=== PATIENT | female | born 1925 | race Caucasian/White ===

== ENCOUNTER 2016-07-31 11:47 | Emergency (ER) | payer MEDICARE, BC ==
[2016-07-31] MEDS ORDERED: Pantoprazole 40 MG Vial IVPUSH ONE (12:42)
[2016-07-31] MEDS ORDERED: Promethazine 25 MG Tab PO ONE (12:42)
[2016-07-31 13:14] LABS: CHLORIDE,CL 97 mmol/L (98-107); SODIUM,NA 141 mmol/L (136-145)
--- NOTE | 2016-07-31 14:32 | EDM.PDOC ---
ED HPI GENERAL MEDICAL PROBLEM - General Chief Complaint: Gastrointestinal Problem Stated Complaint: pt fell 3 days ago started experiencing n/v today. Time Seen by Provider: 07/31/16 12:01 Source of Information: Reports: Patient, EMS History Limitations: Reports: No limitations - History of Present Illness INITIAL COMMENTS - FREE TEXT/NARRATIVE: Patient brought in by EMS for complaint of nausea and emesis today. Able to take morning pills. Says she fell 48hr ago. Has left sided rib pain in anterior/ lateral left ribs below breast. Fell into a coffee table. Denies hitting head. No LOC. Denies any other injuries. Has Life Alert and hit button. Son contacted and he came to get her back on her feet. She has not been evaluated since fall. Able to get around home using walker. Not sure why she fell. Denies any pain other than sore rib area. Pain does not worsen much with deep breath but is sore when pressure applied. No other bowel/GI changes. No new cough or SOB. Main complaint as to why she came in is the new nausea/emesis as well as concern that she broke ribs. Has been taking an aspirin approximately every 3 hours since fall. On home O2 at 4L. 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 to left knee Generalized Pain Score (Numeric/FACES): 4 - Related Data Allergies Allergy/AdvReac Type Severity Reaction Status Date / Time Penicillins Allergy Cannot Verified 08/30/15 12:20 Remember Home Meds: Home Meds Aspirin [Halfprin] 81 mg PO DAILY 04/30/15 [History] Budesonide/Formoterol [Symbicort 160-4.5 MCG] 2 puff PO BID 04/30/15 [History] Diltiazem HCl [Diltiazem ER] 360 mg PO DAILY 04/30/15 [History] Furosemide [Lasix] 20 mg PO DAILY 04/30/15 [History] Metoprolol Tartrate 50 mg PO BID 04/30/15 [History] Multivitamin [Multivitamins] 1 cap PO DAILY 04/30/15 [History] Potassium Chloride 10 meq PO DAILY 04/30/15 [History] Simvastatin [Zocor] 40 mg PO BEDTIME 04/30/15 [History] predniSONE [Prednisone] 5 mg PO DAILY 04/30/15 [History] Albuterol/Ipratropium [DuoNeb 3.0-0.5 MG/3 ML] 3 ml NEB Q4HR 08/31/15 [History] Past Medical History HEENT History: Reports: Cataract, Glaucoma, Impaired vision Cardiovascular History: Reports: None, Arrhythmia, Bypass, CAD, High cholesterol , Hypertension, [place] Respiratory History: Reports: COPD Gastrointestinal History: Reports: None Genitourinary History: Reports: None, Urinary incontinence Musculoskeletal History: Reports: Arthritis, Osteoarthritis Neurological History: Reports: None Psychiatric History: Reports: None Endocrine/Metabolic History: Reports: None Hematologic History: Reports: Blood transfusion(s) Immunologic History: Reports: None Oncologic (Cancer) History: Reports: None Dermatologic History: Reports: Venous stasis dermatitis, Other (see below) ( Decubiti bilateral buttocks from "sitting too much and wearing Depends") - Infectious Disease History Infectious Disease History: Reports: Chicken pox, Measles, Mumps, Pertussis ( whooping cough), Shingles - Past Surgical History HEENT Surgical History: Reports: Cataract surgery, Oral surgery, Tonsillectomy Cardiovascular Surgical History: Reports: Coronary artery bypass, Varicose Respiratory Surgical History: Reports: None GI Surgical History: Reports: Appendectomy, Colonoscopy Female Surgical History: Reports: None Endocrine Surgical History: Reports: None Neurological Surgical History: Reports: None Musculoskeletal Surgical History: Reports: None Oncologic Surgical History: Reports: None Dermatological Surgical History: Reports: None - Past Imaging History Past Imaging History: Reports: Angiography (Heart catheterization in 2008), Stress testing (Low level on 10/04/08) Social & Family History - Tobacco Use Smoking Status *Q: Former Smoker Years of Tobacco use: 35 (Quit 1980) Packs/Tins Daily: 0.7 Used Tobacco, but Quit: Yes Month Tobacco Last Used: 1983 Second Hand Smoke Exposure: No - Caffeine Use Caffeine Use: Reports: Coffee Caffeine Use Comment: 3 cups a day - Alcohol Use Days Per Week of Alcohol Use: 0 - Recreational Drug Use Recreational Drug Use: No Drug Use in Last 12 Months: No - Living Situation & Occupation Living situation: Reports: (2008, 4 children, 6 step children), alone 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 Denies: fever, chills HEENT: Reports: No symptoms. Denies: Vision change Respiratory: Denies: Shortness of Breath, Wheezing, Pleuritic Chest Pain, Cough , Sputum, Hemoptysis Cardiovascular: Reports: Chest pain (left radha-lateral lower ribs), Edema ( chronic). Denies: Lightheadedness, Palpitations, Syncope GI/Abdominal: Reports: Nausea, Vomiting. Denies: Abdominal pain, Black stool, Bloody stool, Difficulty swallowing, Distension, Hematemesis : Reports: no symptoms Musculoskeletal: Reports: other (See HPI for left rib pain) Skin: Reports: other (Sustained skin tear to left knee during fall. ) Neurological: Denies: Confusion, Dizziness, Headache, Seizure, Syncope, Change in Speech Psychiatric: Reports: No symptoms ED EXAM, GENERAL - Physical Exam Exam: See Below Exam Limited By: No limitations General Appearance: alert, no apparent distress, obese Eye Exam: bilateral eye: EOMI, PERRL Ears: normal external exam Nose: normal inspection Throat/Mouth: Normal inspection, Normal voice, No airway compromise Head: atraumatic, normocephalic Neck: normal inspection, supple, non-tender, full range of motion Respiratory/Chest: decreased breath sounds (throughout), crackles (mild, bilateral), rhonchi (scattered), other (Tender left lower anterior-lateral chest wall. No crepitus. ). No: wheezing, stridor, accessory muscle use, retractions, splinting Cardiovascular: regular rate, rhythm, no murmur, other (significant edema bilateral lower extremities (patient says this is normal for her)) GI/Abdominal: normal bowel sounds, soft, non tender, other (central hernia noted upper abdomen. ). No: guarding, rebound, tender (Female) Exam: Deferred Rectal (Female) Exam: Other (small scabbed area on both buttocks, no active drainage. ) Back Exam: No: CVA tenderness (L), CVA tenderness (R), paraspinal tenderness, vertebral tenderness Extremities: non-tender, pedal edema, other (Both lower legs dusky in appearance , swollen). No: increased warmth, mottled, pallor Neurological: alert, oriented, normal cognition, no motor/sensory deficits Psychiatric: normal affect, normal mood Skin Exam: Warm, Dry, Other (Scattered ecchymoses on limbs. Skin tear left knee. Dusky appearance to both lower legs, scaling skin, no active drainage noted. Very thin skin, oozing of blood noted around IV site started by EMS. ) EKG INTERPRETATION EKG Date: 07/31/16 Time: 15:32 Rhythm: other (Sinus) Rate (beats/min): 71 [place]: LAD-left axis deviation P-wave: present QRS: normal ST-T: normal QT: normal EKG Interpretation Comments: intermittent PACs Course - Vital Signs Last Recorded V/S: Last Vital Signs Temp 36.5 C 07/31/16 15:43 Pulse 68 07/31/16 15:43 Resp 20 07/31/16 15:43 BP 133/72 07/31/16 15:43 Pulse Ox 96 07/31/16 15:43 - Orders/Labs/Meds Orders: Active Orders 24 hr Category Date Time Status EKG Documentation Completion [RC] ASDIRECTED Care 07/31/16 15:03 Ordered Ribs 2V w Chest Lt [CR] Stat Exams 07/31/16 12:34 Taken EKG 12 Lead [EK] Routine Ther 07/31/16 15:03 Ordered Labs: Laboratory Tests 07/31/16 07/31/16 07/31/16 Range/Units 12:45 12:45 12:45 WBC 17.7 H (4.0-10.2) K/uL RBC 4.17 (3.77-5.09) M/uL Hgb 12.7 (11.7-15.5) g/dL Hct 39.4 (34.0-46.0) % MCV 94.5 (84.0-98.0) fL MCH 30.5 (28.2-33.3) pg MCHC 32.2 (31.7-36.0) g/dL RDW 14.4 H (11.2-14.1) % Plt Count 245 (150-350) K/uL Neut % (Auto) 85.1 H (45.0-80.0) % Lymph % (Auto) 6.8 L (10.0-50.0) % [place] % (Auto) 7.7 (2.0-14.0) % Eos % (Auto) 0.1 (0.0-5.0) % Baso % (Auto) 0.3 (0.0-2.0) % Neut # (Auto) 15.07 H (1.40-7.00) K/uL Lymph # (Auto) 1.21 (0.50-3.50) K/uL [place] # (Auto) 1.37 H (0.00-1.00) K/uL Eos # (Auto) 0.02 (0.00-0.50) K/uL Baso # (Auto) 0.05 (0.00-0.20) K/uL PT 12.2 H (9.8-11.7) SEC INR 1.1 Sodium 141 (136-145) mmol/L Potassium 3.3 L (3.5-5.1) mmol/L Chloride 97 L (98-107) mmol/L Carbon Dioxide 37.4 H (21.0-32.0) mmol/L BUN 29 H (7-18) mg/dL Creatinine 0.97 (0.51-1.17) mg/dL Est Cr Clr Drug Dosing TNP Estimated GFR (MDRD) 54 mL/min Glucose 78 (74-106) mg/dL Calcium 9.0 (8.5-10.1) mg/dL Total Bilirubin 0.5 (0.2-1.0) mg/dL AST 35 (15-37) U/L ALT 42 (12-78) U/L Alkaline Phosphatase 108 (46-116) IU/L Jdu-N-Bqqqojawbhl Pept 552 H (0-125) pg/mL Total Protein 6.2 L (6.4-8.2) g/dL Albumin 3.3 L (3.4-5.0) g/dL Specimen Type Urine Color Urine Appearance Urine pH (5.0-9.0) Ur Specific [place] (1.005-1.030) Urine Protein (NEGATIVE) mg/dL Urine Glucose (UA) (NEGATIVE) mg/dL Urine Ketones (NEGATIVE) mg/dL Urine Occult Blood (NEGATIVE) Urine Nitrite (NEGATIVE) Urine Bilirubin (NEGATIVE) Urine Urobilinogen (0.2-1.0) E.U./dL Ur Leukocyte Esterase (NEGATIVE) Urine RBC /HPF Urine WBC /HPF Ur Epithelial Cells /LPF Amorphous Sediment (0/HPF) /HPF Urine Bacteria (NONE TO FEW) /HPF 07/31/16 Range/Units 13:30 WBC (4.0-10.2) K/uL RBC (3.77-5.09) M/uL Hgb (11.7-15.5) g/dL Hct (34.0-46.0) % MCV (84.0-98.0) fL MCH (28.2-33.3) pg MCHC (31.7-36.0) g/dL RDW (11.2-14.1) % Plt Count (150-350) K/uL Neut % (Auto) (45.0-80.0) % Lymph % (Auto) (10.0-50.0) % [place] % (Auto) (2.0-14.0) % Eos % (Auto) (0.0-5.0) % Baso % (Auto) (0.0-2.0) % Neut # (Auto) (1.40-7.00) K/uL Lymph # (Auto) (0.50-3.50) K/uL [place] # (Auto) (0.00-1.00) K/uL Eos # (Auto) (0.00-0.50) K/uL Baso # (Auto) (0.00-0.20) K/uL PT (9.8-11.7) SEC INR Sodium (136-145) mmol/L Potassium (3.5-5.1) mmol/L Chloride (98-107) mmol/L Carbon Dioxide (21.0-32.0) mmol/L BUN (7-18) mg/dL Creatinine (0.51-1.17) mg/dL Est Cr Clr Drug Dosing Estimated GFR (MDRD) mL/min Glucose (74-106) mg/dL Calcium (8.5-10.1) mg/dL Total Bilirubin (0.2-1.0) mg/dL AST (15-37) U/L ALT (12-78) U/L Alkaline Phosphatase (46-116) IU/L Enc-T-Tcwstaghmug Pept (0-125) pg/mL Total Protein (6.4-8.2) g/dL Albumin (3.4-5.0) g/dL Specimen Type Urinblad Urine Color Yellow Urine Appearance Slightly cloudy Urine pH 5.5 (5.0-9.0) Ur Specific [place] 1.020 (1.005-1.030) Urine Protein Negative (NEGATIVE) mg/dL Urine Glucose (UA) Negative (NEGATIVE) mg/dL Urine Ketones Trace H (NEGATIVE) mg/dL Urine Occult Blood Small H (NEGATIVE) Urine Nitrite Positive H (NEGATIVE) Urine Bilirubin Negative (NEGATIVE) Urine Urobilinogen 0.2 (0.2-1.0) E.U./dL Ur Leukocyte Esterase Small H (NEGATIVE) Urine RBC 0-5 /HPF Urine WBC 10-20 H /HPF Ur Epithelial Cells Few /LPF Amorphous Sediment Few (0/HPF) /HPF Urine Bacteria Many H (NONE TO FEW) /HPF Meds: Medications Discontinued Medications Generic Name Dose Route Start Last Admin Trade Name Freq PRN Reason Stop Dose Admin Pantoprazole Sodium 40 mg 07/31/16 12:42 07/31/16 14:22 Protonix Iv IVPUSH 07/31/16 12:43 40 mg ONETIME ONE Administration Potassium Chloride 40 meq 07/31/16 15:16 07/31/16 15:45 Klor-Con M20 PO 07/31/16 15:17 40 meq ONETIME ONE Administration Promethazine HCl 25 mg 07/31/16 12:42 07/31/16 13:33 Phenergan PO 07/31/16 12:43 25 mg ONETIME ONE Administration - Radiology Interpretation Free Text/Narrative:: Xray suspicious for several suspected broken ribs lower left anteriorly. Old fractures noted more superiorly. CABG wires. No obvious infiltrates. - Re-Assessments/Exams Free Text/Narrative Re-Assessment/Exam: 07/31/16 15:17 CBC, Chem, UA, PT/INR ordered. WBC elevated at 17. K decreased at 3.3 UA shows 10-20 WBC and small amount L.E. that could suggest UTI. Culture ordered. Pro BNP 552. Chest film did not show significant CHF. Vital signs stable. Family concerned that patient may be getting to point where she is unable to live at home safely. Given recent fall and rib fractures patient may well benefit from at least short term placement with rehab. May need to consider jail options also. Nausea and emesis may be due to patient's regular consumption of aspirin since fall. Uncertain as to what is causing the elevated WBC. UTI may be contributing but patient is not complaining of symptoms and is not having fever. Overall small number of WBC noted. No obvious pneumonia. Admission for further evaluation of elevated WBC, treatment of UTI, as well as pain control, PT/OT, and probable swing bed placement felt appropriate. Given multiple co-morbidities, continued issues with pressure sores, and large amount of lower extremity edema it was felt that patient should be transferred to [place] where internal medicine and cardiology are available. Discussed patient with , hospitalist from [place]. Accepted patient in transfer. Antibiotics not initiated prior to transfer. Departure - Departure Time of Disposition: 15:28 Disposition: DC/Tfer to [facility] 02 Condition: good Clinical Impression: Rib injury, Skin tear, Hypokalemia, Bilateral lower extremity edema, Pyuria Fall Qualifiers: Encounter type: initial encounter Qualified Code(s): W19.XXXA - Unspecified fall, initial encounter Pressure sore on buttocks Qualifiers: Pressure ulcer stage: unspecified pressure ulcer stage Laterality: unspecified laterality Qualified Code(s): L89.309 - Pressure ulcer of unspecified buttock, unspecified stage Leukocytosis Qualifiers: Leukocytosis type: unspecified Qualified Code(s): D72.829 - Elevated white blood cell count, unspecified Nausea & vomiting Qualifiers: Vomiting type: unspecified Vomiting Intractability: non-intractable Qualified Code(s): R11.2 - Nausea with vomiting, unspecified Referrals: PCP,Unknown [Primary Care Provider] - Forms: ED Department Discharge - My Orders Last 24 Hours: My Active Orders 07/31/16 12:34 Ribs 2V w Chest Lt [CR] Stat 07/31/16 15:03 EKG Documentation Completion [RC] ASDIRECTED EKG 12 Lead [EK] Routine - Assessment/Plan Last 24 Hours: My Active Orders 07/31/16 12:34 Ribs 2V w Chest Lt [CR] Stat 07/31/16 15:03 EKG Documentation Completion [RC] ASDIRECTED EKG 12 Lead [EK] Routine
[2016-07-31] MEDS ORDERED: Potassium Chloride 20 MEQ Tab.ER PO ONE (15:16)
[2016-07-31 15:44] VITALS: BP 133/72
== END 2016-07-31 16:30 ==
LOC: LL.ED 11:47
DX: E87.6 Hypokalemia (principal); S29.9XXA Unspecified injury of thorax, initial encounter; L89.319 Pressure ulcer of right buttock, unspecified stage; L89.329 Pressure ulcer of left buttock, unspecified stage; N39.0 Urinary tract infection, site not specified; K46.9 Unspecified abdominal hernia without obstruction or gangrene; D72.829 Elevated white blood cell count, unspecified; J44.9 Chronic obstructive pulmonary disease, unspecified; M19.90 Unspecified osteoarthritis, unspecified site; Z98.49 Cataract extraction status, unspecified eye; Z98.890 Other specified postprocedural states; Z90.49 Acquired absence of other specified parts of digestive tract; Z87.891 Personal history of nicotine dependence; Z88.0 Allergy status to penicillin; Z79.82 Long term (current) use of aspirin; Z79.899 Other long term (current) drug therapy; X58.XXXA Exposure to other specified factors, initial encounter
CPT/HCPCS: 36415; 71101; 80053; 81001; 83880; 85025; 85610; 93005; 96374; 99285; A9270; C9113; 99284

== ENCOUNTER 2016-08-08 07:26 | Emergency (ER) | payer MEDICARE, BC ==
[2016-08-08 09:01] VITALS: BP 138/60
[2016-08-08] MEDS ORDERED: cefTRIAXone 1 GM Vial IM ONE (09:24)
--- NOTE | 2016-08-08 09:32 | EDM.PDOC ---
ED HISTORY OF PRESENT ILLNESS - General Chief Complaint: Respiratory Problem Stated Complaint: cough Time Seen by Provider: 08/08/16 08:00 Source of Information: Reports: Patient, senior care records, Old records History Limitations: Reports: No limitations - History of Present Illness INITIAL COMMENTS - FREE TEXT/NARRATIVE: Pt with persistent cough. Has been treated recently for pneumonia after falling and breaking several ribs several weeks ago. No fever Timing/Duration: Reports: Week(s): Severity: moderate Location, General: Reports: chest Worsens with: Reports: Breathing Associated Symptoms (General): Reports: cough - Related Data Allergies/ADRs: Allergies Allergy/AdvReac Type Severity Reaction Status Date / Time Penicillins Allergy Cannot Verified 08/08/16 08:09 Remember Home Meds: Home Meds Aspirin [Halfprin] 81 mg PO DAILY 04/30/15 [History] Budesonide/Formoterol [Symbicort 160-4.5 MCG] 2 puff PO BID 04/30/15 [History] Diltiazem HCl [Diltiazem ER] 360 mg PO DAILY 04/30/15 [History] Furosemide [Lasix] 20 mg PO DAILY 04/30/15 [History] Metoprolol Tartrate 50 mg PO BID 04/30/15 [History] Potassium Chloride 20 meq PO DAILY 04/30/15 [History] Simvastatin [Zocor] 40 mg PO BEDTIME 04/30/15 [History] predniSONE [Prednisone] 5 mg PO DAILY 04/30/15 [History] Albuterol/Ipratropium [DuoNeb 3.0-0.5 MG/3 ML] 3 ml NEB Q4HR PRN 08/31/15 [ History] Albuterol [Ventolin HFA] 2 puff INH Q4H PRN 08/08/16 [History] Codeine/Promethazine HCl [Promethazine-Codeine Syrup] 5 ml PO Q6H PRN 08/08/16 [ History] Magnesium Oxide 250 mg PO DAILY 08/08/16 [History] Sennosides/Docusate Sodium [Senna S Tablet] 1 tab PO DAILY 08/08/16 [History] Travoprost [Travatan Z] 1 drop EYEBOTH BEDTIME 08/08/16 [History] Past Medical History HEENT History: Reports: Cataract, Glaucoma, Impaired vision Cardiovascular History: Reports: None, Arrhythmia, Bypass, CAD, High cholesterol , Hypertension, NM Respiratory History: Reports: COPD Gastrointestinal History: Reports: None Genitourinary History: Reports: None, Urinary incontinence Musculoskeletal History: Reports: Arthritis, Osteoarthritis Neurological History: Reports: None Psychiatric History: Reports: None Endocrine/Metabolic History: Reports: None Hematologic History: Reports: Blood transfusion(s) Immunologic History: Reports: None Oncologic (Cancer) History: Reports: None Dermatologic History: Reports: Venous stasis dermatitis Other Dermatologic History: multiple bruises to bilateral arms. Skin tear to left knee. Scabs to bilateral buttocks. - Infectious Disease History Infectious Disease History: Reports: Chicken pox, Measles, Mumps, Pertussis ( whooping cough), Shingles - Past Surgical History HEENT Surgical History: Reports: Cataract surgery, Oral surgery, Tonsillectomy Cardiovascular Surgical History: Reports: Coronary artery bypass, Varicose Respiratory Surgical History: Reports: None GI Surgical History: Reports: Appendectomy, Colonoscopy Female Surgical History: Reports: None Endocrine Surgical History: Reports: None Neurological Surgical History: Reports: None Musculoskeletal Surgical History: Reports: None Oncologic Surgical History: Reports: None Dermatological Surgical History: Reports: None - Past Imaging History Past Imaging History: Reports: Angiography (Heart catheterization in 2008), Stress testing (Low level on 10/04/08) Social & Family History - Tobacco Use Smoking Status *Q: Former Smoker Years of Tobacco use: 35 (Quit 1980) Packs/Tins Daily: 0.7 Used Tobacco, but Quit: Yes Month Tobacco Last Used: 1983 Second Hand Smoke Exposure: No - Caffeine Use Caffeine Use: Reports: Coffee Caffeine Use Comment: 3 cups a day - Alcohol Use Days Per Week of Alcohol Use: 0 - Recreational Drug Use Recreational Drug Use: No Drug Use in Last 12 Months: No - Living Situation & Occupation Living situation: Reports: (2008, 4 children, 6 step children), alone 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82) ED ROS GENERAL - Review of Systems Review Of Systems: See Below Respiratory: Reports: Shortness of Breath, Cough ED EXAM, GENERAL - Physical Exam Exam: See Below Exam Limited By: No limitations Neck: supple Respiratory/Chest: decreased breath sounds, crackles Cardiovascular: regular rate, rhythm GI/Abdominal: soft Course - Vital Signs Last Recorded V/S: Last Vital Signs Temp 37.1 C 08/08/16 07:30 Pulse 111 H 08/08/16 09:00 Resp 24 H 08/08/16 07:30 BP 138/60 08/08/16 09:00 Pulse Ox 96 08/08/16 09:00 - Orders/Labs/Meds Orders: Active Orders 24 hr Category Date Time Status Chest 2V [CR] Stat Exams 08/08/16 07:31 Taken Labs: Laboratory Tests 08/08/16 08/08/16 Range/Units 07:32 07:32 WBC 15.9 H (4.0-10.2) K/uL RBC 3.91 (3.77-5.09) M/uL Hgb 11.8 (11.7-15.5) g/dL Hct 36.2 (34.0-46.0) % MCV 92.6 (84.0-98.0) fL MCH 30.2 (28.2-33.3) pg MCHC 32.6 (31.7-36.0) g/dL RDW 14.2 H (11.2-14.1) % Plt Count 319 (150-350) K/uL Neut % (Auto) 72.8 (45.0-80.0) % Lymph % (Auto) 13.4 (10.0-50.0) % [place] % (Auto) 12.0 (2.0-14.0) % Eos % (Auto) 1.5 (0.0-5.0) % Baso % (Auto) 0.3 (0.0-2.0) % Neut # (Auto) 11.54 H (1.40-7.00) K/uL Lymph # (Auto) 2.13 (0.50-3.50) K/uL [place] # (Auto) 1.91 H (0.00-1.00) K/uL Eos # (Auto) 0.24 (0.00-0.50) K/uL Baso # (Auto) 0.05 (0.00-0.20) K/uL Specimen Type Urinvoid Urine Color Yellow Urine Appearance Clear Urine pH 7.5 (5.0-9.0) Ur Specific [place] 1.020 (1.005-1.030) Urine Protein Negative (NEGATIVE) mg/dL Urine Glucose (UA) Negative (NEGATIVE) mg/dL Urine Ketones Negative (NEGATIVE) mg/dL Urine Occult Blood Negative (NEGATIVE) Urine Nitrite Negative (NEGATIVE) Urine Bilirubin Negative (NEGATIVE) Urine Urobilinogen 1.0 (0.2-1.0) E.U./dL Ur Leukocyte Esterase Negative (NEGATIVE) Urine RBC 0-5 /HPF Urine WBC 0-5 /HPF Ur Epithelial Cells Rare /LPF Urine Bacteria Few (NONE TO FEW) /HPF Meds: Medications Discontinued Medications Generic Name Dose Route Start Last Admin Trade Name Rashaun PRN Reason Stop Dose Admin Ceftriaxone Sodium 1 gm 08/08/16 09:24 Rocephin IM 08/08/16 09:25 ONETIME ONE - Re-Assessments/Exams Free Text/Narrative Re-Assessment/Exam: 08/08/16 09:28 D?W pt findings of pneumonia/atelectasis on CRX. Pt to be given Rocephin IM for 3 days and oral Zithromax. Pt desires to stay at [facility] if possible. Return to ER if worse Departure - Departure Time of Disposition: 09:30 Disposition: [facility] to [facility] Clinical Impression: Pneumonia Qualifiers: Pneumonia type: due to unspecified organism Laterality: bilateral Lung location : lower lobe of lung Qualified Code(s): J18.9 - Pneumonia, unspecified organism Forms: ED Department Discharge
== END 2016-08-08 11:00 ==
LOC: LL.ED 07:26
DX: J18.9 Pneumonia, unspecified organism (principal); I10 Essential (primary) hypertension; E78.00 Pure hypercholesterolemia, unspecified; J44.9 Chronic obstructive pulmonary disease, unspecified; I25.810 Atherosclerosis of coronary artery bypass graft(s) without angina pectoris; M19.90 Unspecified osteoarthritis, unspecified site; Z88.0 Allergy status to penicillin; Z79.82 Long term (current) use of aspirin; Z79.899 Other long term (current) drug therapy; Z98.49 Cataract extraction status, unspecified eye; Z98.890 Other specified postprocedural states; Z90.49 Acquired absence of other specified parts of digestive tract; Z87.891 Personal history of nicotine dependence
CPT/HCPCS: 36415; 71020; 81001; 85025; 96372; 99285; J0696; 99283